=== PATIENT | female | born 1960 | race Caucasian/White ===

== ENCOUNTER → 2017-03-08 | Outpatient (CLI) | payer OTHER | LOC: M WUC 15:44 | PROVIDERS: ATTEND Physician Assistant | DX: Z02.1 Encounter for pre-employment examination (principal) ==

== ENCOUNTER → 2020-12-22 | Outpatient (CLI) | payer OTHER ==
--- NOTE | 2020-12-22 12:28 | REP ---
INDICATION: VARICOSE VEINS; LT LEG COMPARISON: None. TECHNIQUE: Orosco scale and color Doppler evaluation left lower extremity using linear high frequency transducer with reflux evaluation. FINDINGS: Ultrasound examination of the left lower extremity deep venous structures from the common femoral vein to the popliteal vein demonstrates normal compressibility flow and wave patterns in response to respiration and augmentation. There is no evidence for deep venous thrombosis. Reflux evaluation demonstrates significant reflux through the greater saphenous vein (GSV) primarily noted on reversed Trendelenburg position and less prominent on standing. Findings include reflux through multiple mid to distal collaterals along the thigh and below the knee. Proximal GSV measures 9 mm diameter with reflux duration 2 seconds Mid GSV measures 5 mm diameter with reflux duration 5.7 seconds Distal GSV measures 5.6 mm diameter with reflux duration 5.1 seconds IMPRESSION: No evidence for deep venous thrombosis. Reflux as described above and on saved worksheet. <Electronically signed by August Moy > 12/22/20 9312
== END ==
LOC: M RAD 11:18
PROVIDERS: ATTEND Nurse Practitioner
DX: I83.812 Varicose veins of left lower extremity with pain (principal)